=== PATIENT | female | born 1945 | race African-American/Black ===

== ENCOUNTER 2016-10-11 22:16 | Emergency (ER) | payer MEDICARE, MEDICAID ==
[2016-10-11] MEDS ORDERED: ONDANSETRON 4 MG VIAL ONE (23:18)
[2016-10-11] MEDS ORDERED: DILAUDID 1 MG/ML AMP ONE (23:18)
[2016-10-12] MEDS ORDERED: PROPARACAINE 0.5% OP SOLN ONE (03:37)
[2016-10-12] MEDS ORDERED: ACETAMINOPHEN 325 MG TAB ONE (05:17)
== END 2016-10-12 05:38 | disposition home or self-care (01) ==
LOC: ER 22:16
CPT/HCPCS: 70450 ×2; 93005 ×2; 96374 ×2; 99284; J1170; J2405